=== PATIENT | female | born 1995 | race Two or more races ===

== ENCOUNTER 2023-09-23 08:38 | Emergency (ER) | payer MEDICAID, OTHER ==
[~2023-09-23] VITALS: Ht 157.5 cm; Wt 52.6 kg
[2023-09-23 09:16] VITALS: BP 123/77; PULSE 107; RESP 12; TEMP 98.4; O2SAT 100
[2023-09-23] MEDS ORDERED: NAPR-746 PO (09:57)
[2023-09-23] MEDS ORDERED: LIDO5DIS21 TOP (09:57)
[2023-09-23] MEDS: methylPREDNISolone SOD SUCC 125 MG/2 ML VL IM ONE (10:01)
[2023-09-23] MEDS: KETOROLAC TROMETH 60MG/2ML VIAL IM ONE (10:01)
== END 2023-09-23 09:57 | disposition home or self-care (01) ==
LOC: ER 08:38
DX: M54.12 Radiculopathy, cervical region (principal)
CPT/HCPCS: 96372; 99284; J1885; J2919

== ENCOUNTER 2023-11-11 10:50 | Emergency (ER) | payer MEDICAID ==
[~2023-11-11] VITALS: Ht 157.5 cm; Wt 52.3 kg
[~2023-11-11 10:50] MED LIST: LIDO5DIS21 TOP; NAPR-746 PO
[2023-11-11 11:38] VITALS: BP 128/80; TEMP 98.6
[2023-11-11 11:41] VITALS: PULSE 80; RESP 16; O2SAT 98
[2023-11-11] MEDS ORDERED: HYDR-4902 PO (13:20)
[2023-11-12] MEDS ORDERED: HYDR-4798 PO (13:13)
== END 2023-11-11 13:24 | disposition home or self-care (01) ==
LOC: ER 10:50
DX: S22.32XA Fracture of one rib, left side, initial encounter for closed fracture (principal); Z79.899 Other long term (current) drug therapy; X58.XXXA Exposure to other specified factors, initial encounter; Y93.89 Activity, other specified; Y92.89 Other specified places as the place of occurrence of the external cause; Y99.8 Other external cause status
CPT/HCPCS: 71101